=== PATIENT | male | born 1995 | race Caucasian/White ===

== ENCOUNTER 2020-03-18 17:45 | Emergency (ER) | payer OTHER ==
--- NOTE | 2020-03-18 19:07 | EDM.PDOC ---
<RogerFide M - Last Filed: 03/18/20 20:28> ED HPI GENERAL MEDICAL PROBLEM - General Chief Complaint: Abdominal Pain Stated Complaint: ABD PAIN, HEART BURN Time Seen by Provider: 03/18/20 18:45 Source of Information: Reports: Patient, RN, RN Notes Reviewed History Limitations: Reports: No Limitations - History of Present Illness Onset: Gradual Onset Date: 03/04/20 Duration: Recurring Location: Reports: Abdomen Quality: Reports: Other (heartburn epigastric in nature) Improves with: Reports: Medication (TUMS 6 a day) Associated Symptoms: Reports: Nausea/Vomiting (intermittent nausea ) Left Middle Abdomen Pain Score (Numeric/FACES): 7 - Related Data Allergies Allergy/AdvReac Type Severity Reaction Status Date / Time No Known Allergies Allergy Verified 03/18/20 18:34 Home Meds: Home Meds Albuterol [Ventolin HFA] 1 puff IH DAILY 03/18/20 [History] Past Medical History Respiratory History: Reports: Asthma Musculoskeletal History: Reports: None - Past Surgical History Head Surgeries/Procedures: Reports: None Respiratory Surgical History: Reports: None Musculoskeletal Surgical History: Reports: Other (See Below) Other Musculoskeletal Surgeries/Procedures:: wrist- set,,, knee surgeries Dermatological Surgical History: Reports: None Social & Family History - Tobacco Use Smoking Status *Q: Never Smoker Second Hand Smoke Exposure: No - Caffeine Use Caffeine Use: Reports: Coffee - Recreational Drug Use Recreational Drug Use: No ED ROS GENERAL - Review of Systems Review Of Systems: See Below Constitutional: Reports: No Symptoms HEENT: Reports: Other (Epigastric heartburn) Cardiovascular: Reports: No Symptoms Endocrine: Reports: No Symptoms GI/Abdominal: Reports: Abdominal Pain, Other (Pain under left rib with pancreas tenderness) Musculoskeletal: Reports: No Symptoms Skin: Reports: No Symptoms Neurological: Reports: No Symptoms Psychiatric: Reports: No Symptoms Hematologic/Lymphatic: Reports: No Symptoms Immunologic: Reports: No Symptoms ED EXAM, GI/ABD - Physical Exam Exam: See Below Exam Limited By: No Limitations General Appearance: Alert, WD/WN Throat/Mouth: Normal Inspection Head: Normocephalic Neck: Normal Inspection, Supple, Non-Tender, Full Range of Motion Respiratory/Chest: No Respiratory Distress, Lungs Clear, Normal Breath Sounds Cardiovascular: Regular Rate, Rhythm GI/Abdominal Exam: Guarding, Tender (Left upper margin near ribs ) (Male) Exam: Deferred Rectal (Males) Exam: Deferred Neurological: Alert, Oriented Psychiatric: Normal Affect, Normal Mood Skin Exam: Warm, Dry, Intact, Normal Color, No Rash Lymphatic: No Adenopathy Course - Re-Assessments/Exams Free Text/Narrative Re-Assessment/Exam: 03/18/20 19:13 Examine pt labs, meds, and diagnostics ordered 03/18/20 19:18 CBC WNL 03/18/20 19:38 Protonix helped "some but the pain is still there". 03/18/20 19:43 Will give Fentanyl for pain relief 03/18/20 20:11 UA negative. 03/18/20 20:28 Pain is relieved from Fentanyl. Departure - Departure Time of Disposition: 20:29 Disposition: Home, Self-Care 01 Condition: Good Clinical Impression: Constipation Qualifiers: Constipation type: slow transit constipation Qualified Code(s): K59.01 - Slow transit constipation - Discharge Information *PRESCRIPTION DRUG MONITORING PROGRAM REVIEWED*: Not Applicable *COPY OF PRESCRIPTION DRUG MONITORING REPORT IN PATIENT ALISON: Not Applicable Instructions: Constipation, Adult, [id number] Referrals: PCP,None [Primary Care Provider] - Forms: ED Department Discharge Care Plan Goals: Please refer to attached instructions on the colon prep to alleviate the constipation. Please follow up with your primary provider if symptoms persist Seek medical care immediately if fever, shortness of breath, chills, night sweats or increased pain. Sepsis Event Note (ED) - Evaluation Sepsis Screening Result: No Definite Risk - Problem List & Annotations (1) Constipation SNOMED Code(s): 87679612 Code(s): K59.00 - CONSTIPATION, UNSPECIFIED Status: Acute Priority: High Current Visit: Yes Onset Date: ~03/04/20 Qualifiers: Constipation type: slow transit constipation Qualified Code(s): K59.01 - Slow transit constipation - Problem List Review Problem List Initiated/Reviewed/Updated: Yes - Assessment/Plan Plan: Please refer to attached instructions on the colon prep to alleviate the constipation. Please follow up with your primary provider if symptoms persist Seek medical care immediately if fever, shortness of breath, chills, night sweats or increased pain. <OfficerArmando - Last Filed: 03/18/20 20:36> ED HPI GENERAL MEDICAL PROBLEM - History of Present Illness INITIAL COMMENTS - FREE TEXT/NARRATIVE: 24-year-old gentleman presents emergency department with a complaint of abdominal pain, he states been going on for about 2 weeks pretty consistent about an hour after he eats he has significant abdominal pain does get quite intense at times has caused some nausea and some vision changes earlier today but that now has resolved. He states he does have a bowel movement every day no fevers no shortness of breath or chest pain ED EXAM, GI/ABD - Physical Exam Text/Narrative:: Agree with exam below Course - Vital Signs Last Recorded V/S: Last Vital Signs Temp 97.5 F 03/18/20 18:35 Pulse 60 03/18/20 18:35 Resp 12 03/18/20 18:35 BP 142/78 H 03/18/20 18:35 Pulse Ox 100 03/18/20 18:35 - Orders/Labs/Meds Orders: Active Orders 24 hr Category Date Time Status Peripheral IV Care [RC] . DIRECTED Care 03/18/20 19:11 Active Abdomen 2V AP Flat Upright [CR] Stat Exams 03/18/20 18:56 Taken Pantoprazole [ProTONIX] Med 03/19/20 09:00 Active 40 mg PO DAILY Sodium Chloride 0.9% [Saline Flush] Med 03/18/20 19:11 Active 10 ml FLUSH ASDIRECTED PRN Peripheral IV Insertion Adult [OM.PC] Urgent Oth 03/18/20 19:11 Ordered Medication Orders Pantoprazole Sodium (Protonix) 40 mg PO DAILY REBECCA Sodium Chloride (Saline Flush) 10 ml FLUSH ASDIRECTED PRN PRN Reason: Keep Vein Open Last Admin: 03/18/20 19:21 Dose: 10 ml Documented by: LV Labs: Laboratory Tests 03/18/20 03/18/20 03/18/20 Range/Units 19:02 19:02 19:02 WBC 5.4 (4.5-11.0) K/uL RBC 4.88 (4.30-5.90) M/uL Hgb 15.1 H (12.0-15.0) g/dL Hct 44.4 (40.0-54.0) % MCV 91 (80-98) fL MCH 31 (27-31) pg MCHC 34 (32-36) % Plt Count 165 (150-400) K/uL Neut % (Auto) 64 (36-66) % Lymph % (Auto) 26 (24-44) % [place] % (Auto) 7 H (2-6) % Eos % (Auto) 3 (2-4) % Baso % (Auto) 0 (0-1) % Sodium 141 (140-148) mmol/L Potassium 4.2 (3.6-5.2) mmol/L Chloride 103 (100-108) mmol/L Carbon Dioxide 28 (21-32) mmol/L Anion Gap 9.7 (5.0-14.0) mmol/L BUN 17 (7-18) mg/dL Creatinine 1.1 (0.8-1.3) mg/dL Est Cr Clr Drug Dosing 136.18 mL/min Estimated GFR (MDRD) > 60 (>60) Glucose 87 (74-106) mg/dL Calcium 9.1 (8.5-10.1) mg/dL Total Bilirubin 0.4 (0.2-1.0) mg/dL AST 17 (15-37) U/L ALT 25 (12-78) U/L Alkaline Phosphatase 60 (46-116) U/L Total Protein 7.2 (6.4-8.2) g/dL Albumin 4.3 (3.4-5.0) g/dL Globulin 2.9 (2.3-3.5) g/dL Albumin/Globulin Ratio 1.5 (1.2-2.2) Amylase 50 (25-115) U/L Lipase 99 (73-393) U/L Urine Color (YELLOW) Urine Appearance (CLEAR) Urine pH (5.0-8.0) Ur Specific [place] (1.008-1.030) Urine Protein (NEGATIVE) mg/dL Urine Glucose (UA) (NEGATIVE) mg/dL Urine Ketones (NEGATIVE) mg/dL Urine Occult Blood (NEGATIVE) Urine Nitrite (NEGATIVE) Urine Bilirubin (NEGATIVE) Urine Urobilinogen (0.2-1.0) EU/dL Ur Leukocyte Esterase (NEGATIVE) 03/18/20 Range/Units 20:02 WBC (4.5-11.0) K/uL RBC (4.30-5.90) M/uL Hgb (12.0-15.0) g/dL Hct (40.0-54.0) % MCV (80-98) fL MCH (27-31) pg MCHC (32-36) % Plt Count (150-400) K/uL Neut % (Auto) (36-66) % Lymph % (Auto) (24-44) % [place] % (Auto) (2-6) % Eos % (Auto) (2-4) % Baso % (Auto) (0-1) % Sodium (140-148) mmol/L Potassium (3.6-5.2) mmol/L Chloride (100-108) mmol/L Carbon Dioxide (21-32) mmol/L Anion Gap (5.0-14.0) mmol/L BUN (7-18) mg/dL Creatinine (0.8-1.3) mg/dL Est Cr Clr Drug Dosing mL/min Estimated GFR (MDRD) (>60) Glucose (74-106) mg/dL Calcium (8.5-10.1) mg/dL Total Bilirubin (0.2-1.0) mg/dL AST (15-37) U/L ALT (12-78) U/L Alkaline Phosphatase (46-116) U/L Total Protein (6.4-8.2) g/dL Albumin (3.4-5.0) g/dL Globulin (2.3-3.5) g/dL Albumin/Globulin Ratio (1.2-2.2) Amylase (25-115) U/L Lipase (73-393) U/L Urine Color Yellow (YELLOW) Urine Appearance Clear (CLEAR) Urine pH 7.0 (5.0-8.0) Ur Specific [place] >= 1.030 (1.008-1.030) Urine Protein Negative (NEGATIVE) mg/dL Urine Glucose (UA) Negative (NEGATIVE) mg/dL Urine Ketones Negative (NEGATIVE) mg/dL Urine Occult Blood Negative (NEGATIVE) Urine Nitrite Negative (NEGATIVE) Urine Bilirubin Negative (NEGATIVE) Urine Urobilinogen 0.2 (0.2-1.0) EU/dL Ur Leukocyte Esterase Negative (NEGATIVE) Meds: Medications Generic Name Dose Route Start Last Admin Trade Name Freq PRN Reason Stop Dose Admin Pantoprazole Sodium 40 mg 03/19/20 09:00 Protonix PO DAILY REBECCA Sodium Chloride 10 ml 03/18/20 19:11 03/18/20 19:21 Saline Flush FLUSH 10 ml ASDIRECTED PRN Administration Keep Vein Open Discontinued Medications Generic Name Dose Route Start Last Admin Trade Name George PRN Reason Stop Dose Admin Fentanyl 50 mcg 03/18/20 19:42 03/18/20 20:00 Sublimaze IVPUSH 03/18/20 19:43 50 mcg ONETIME ONE Administration Pantoprazole Sodium 40 mg 03/18/20 19:11 03/18/20 19:20 Protonix Iv IVPUSH 03/18/20 19:12 40 mg ONETIME ONE Administration Sepsis Event Note (ED) - Focused Exam Vital Signs: Vital Signs Temp Pulse Resp BP Pulse Ox 03/18/20 18:35 97.5 F 60 12 142/78 H 100 03/18/20 18:09 97.5 F 60 12 142/78 H 100 - My Orders Last 24 Hours: My Active Orders 03/18/20 19:11 Peripheral IV Care [RC] . DIRECTED Sodium Chloride 0.9% [Saline Flush] 10 ml FLUSH ASDIRECTED PRN Peripheral IV Insertion Adult [OM.PC] Urgent - Assessment/Plan Last 24 Hours: My Active Orders 03/18/20 19:11 Peripheral IV Care [RC] . DIRECTED Sodium Chloride 0.9% [Saline Flush] 10 ml FLUSH ASDIRECTED PRN Peripheral IV Insertion Adult [OM.PC] Urgent Plan: Assessment Acuity = acute Site and laterality = function constipation Etiology = slow transit time Manifestations = intermittent abdominal pain postprandial Location of injury = Home Lab values = CBC, CMP unremarkable plain film the abdomen does show a large amount of stool and gas official read radiologist pending, urinalysis unremarkable Plan I did talk to him about further evaluation which may include a CAT scan he declined at this time would like to try the colonoscopy cleanout prep before pursuing any further evaluation, will follow-up with his primary care at home. Armando Zurita MD was personally available for consultation in the ED. I have reviewed the chart and agree with the documentation as recorded by the APPLICATION SUPPORT INTERN Student, including the assessment, treatment plan and disposition. Armando Zurita MD personally saw and examined the patient. I have reviewed and agree with the APPLICATION SUPPORT INTERN Student's findings. This note was dictated using [employer] voice recognition software please call with any questions on syntax or grammar.
[2020-03-18] MEDS ORDERED: Pantoprazole 40 MG Vial IVPUSH ONE (19:11)
[2020-03-18] MEDS ORDERED: Sodium Chloride 0.9% 10 ML Syringe FLUSH PRN (19:11)
[2020-03-18] MEDS ORDERED: fentaNYL 100 MCG/2 ML SDV IVPUSH ONE (19:42)
[2020-03-19] MEDS ORDERED: Pantoprazole 40 MG Tab.CR PO SCH (09:00)
--- NOTE | 2020-03-19 09:00 | CR ---
Abdomen 2V AP Flat Upright CLINICAL HISTORY: Epigastric pain and heartburn FINDINGS: No free air is identified. Small intestinal configuration is nonacute. There is some fecal retention. IMPRESSION: Nonacute intestinal gas pattern Mild fecal retention
== END 2020-03-18 20:47 | disposition home or self-care (01) ==
LOC: JP.ED 17:45
DX: K59.01 Slow transit constipation (principal); J45.909 Unspecified asthma, uncomplicated; Z79.899 Other long term (current) drug therapy
CPT/HCPCS: 36415; 74019; 80053; 81003; 82150; 83690; 85025; 96374; 96375; 99284; C9113; J3010